=== PATIENT | female | born 1970 | race Caucasian/White ===

== ENCOUNTER 2019-02-02 18:56 | Emergency (ER) | payer SELFPAY ==
[~2019-02-02] VITALS: Ht 154.9 cm; Wt 61.2 kg
[2019-02-02 19:01] VITALS: BP 120/63
--- NOTE | 2019-02-02 19:05 | NUR ---
BIB DAUGHTER. AAO X4 C/O RIGHT FLANK STABBING PAIN RADIATING TO RIGHT SUPRAPUBIC YESTERDAY. ADMITS TO BURINING PAIN UPON VOIDING, HESITANCY. ABDOMEN TENDER TO TOUCH. PT IS CONSTANTLY BURPING. DENIES N/V/D. HOB UP. BED SIDE RAILS UP X1. ON LOW BED POSITION, LOCKED. ER MADE AWARE OF PT STATUS.
--- NOTE | 2019-02-02 19:05 | NUR ---
ASSUMED CARE OF PT FROM BETITO CASTILLO
--- NOTE | 2019-02-02 19:05 | NUR ---
URINE CUP HANDED TO PT FOR SAMPLE
[2019-02-02] MEDS ORDERED: NACL 0.9% 1,000 ML IV ONE (19:15)
[2019-02-02] MEDS ORDERED: MORPHINE SULFATE 4 MG/ML SYR IVP ONE (19:15)
[2019-02-02 19:32] LABS: BASOPHILS # (AUTO) 0.1 K/uL (0.00-0.22); BASOPHILS % (AUTO) 0.4 % (0.0-2.0); EOSINOPHILS # (AUTO) 0.2 K/uL (0-0.4); EOSINOPHILS % (AUTO) 1.2 % (0.0-4.0); HEMATOCRIT 39.3 % (36-48); HEMOGLOBIN 12.7 g/dL (12.0-16.0); LYMPHOCYTES # (AUTO) 4.3 K/uL (2.5-16.5); LYMPHOCYTES % (AUTO) 29.4 % (20.5-51.1); MEAN CORPUSCULAR HEMOGLOBIN 28 pg (27-31); MEAN CORPUSCULAR HGB CONC 32 g/dL (33-37); MEAN CORPUSCULAR VOLUME 86.7 fL (80-94); MONOCYTES # (AUTO) 1.1 K/uL (0.8-1.0); MONOCYTES % (AUTO) 7.2 % (1.7-9.3); NEUTROPHILS % (AUTO) 61.8 % (42.2-75.2); PLATELET COUNT (AUTO) 218 K/uL (140-450); RED BLOOD CELL COUNT(AUTO) 4.54 MIL/uL (4.20-5.40); RED CELL DISTRIBUTION WIDTH 12.5 % (11.6-13.7); WHITE BLOOD COUNT (AUTO) 14.6 K/uL (4.8-10.8)
--- NOTE | 2019-02-02 19:35 | NUR ---
US AT BEDSIDE.
[2019-02-02 19:40] LABS: ANION GAP 13.4 (8-16); CARBON DIOXIDE 25.8 mmol/L (21-32); CREATININE 0.8 mg/dL (0.6-1.3); POTASSIUM 3.2 mmol/L (3.5-5.1)
[2019-02-02 19:46] LABS: APPEARANCE,URINE HAZY (CLEAR); BILIRUBIN,URINE NEGATIVE (NEGATIVE); BLOOD, URINE 1+ (NEGATIVE); COLOR,URINE YELLOW (YELLOW); LEUKOCYTE ESTERASE ,URINE TRACE (NEGATIVE); NITRITE, URINE NEGATIVE (NEGATIVE); UGLUCOSE NEGATIVE (NEGATIVE)
[2019-02-02 19:47] LABS: ALBUMIN 3.7 g/dL (3.4-5.0); TOTAL BILIRUBIN 0.4 mg/dL (0.0-1.0)
[2019-02-02 19:56] LABS: WBC,URINE 16-25 (MOD) /HPF (0-5)
[2019-02-02] MEDS ORDERED: cefTRIAXone 1,000 MG VIAL ONE (20:16)
--- NOTE | 2019-02-02 20:18 | NUR ---
PT REPORTS RELIEF OF PAIN POST MORPHINE ADMIN. WILL CONTINUE TO MONITOR.
--- NOTE | 2019-02-02 20:44 | NUR ---
PT C/O PAIN, ER MD AWARE.
[2019-02-02] MEDS ORDERED: KETOROLAC 15 MG/ML VIAL IVP ONE (20:45)
--- NOTE | 2019-02-02 21:15 | NUR ---
PAIN RELEIVED POST MEDICATION ADMIN. WILL CONTINUE TO ASSESS.
--- NOTE | 2019-02-02 21:42 | NUR ---
IV removed, catheter intact and site benign. Applied folded 4x4 gauze and tape to stop bleeding.
--- NOTE | 2019-02-02 21:42 | NUR ---
Patient discharged with v/s stable. Written and verbal after care instructions given and explained. Patient alert, oriented and verbalized understanding of instructions. Ambulatory with steady gait. All questions addressed prior to discharge. ID band removed. Patient advised to follow up with PMD. Rx of FLOMAX, NORCO, TORADOL, CIPRO given. Patient educated on indication of medication including possible reaction and side effects. Opportunity to ask questions provided and answered.
[2019-02-02 21:44] VITALS: BP 117/75
== END 2019-02-02 21:44 | disposition home or self-care (01) ==
LOC: MED 18:56
DX: N20.0 Calculus of kidney (principal); N23 Unspecified renal colic
CPT/HCPCS: 36415; 74176; 76705; 80053; 81001; 81025; 83690; 85025; 87040; 87086; 87186; 96365; 96375; 99284; J0696; J1885; J2270; J7030; J7060; Q0092

== ENCOUNTER 2022-03-12 01:30 | Emergency (ER) | payer MEDICAID, OTHER ==
[~2022-03-12] VITALS: Ht 154.9 cm; Wt 65.8 kg
[2022-03-12 01:32] VITALS: BP 134/68
--- NOTE | 2022-03-12 01:40 | NUR ---
TO LOBBY FOLLOWING TRIAGE
[2022-03-12 02:10] LABS: BASOPHILS # (AUTO) 0.1 K/uL (0.00-0.22); BASOPHILS % (AUTO) 1.4 % (0.0-2.0); EOSINOPHILS % (AUTO) 0.3 % (0.0-4.0); HEMOGLOBIN 13.7 g/dL (12.0-16.0); LYMPHOCYTES # (AUTO) 1.5 K/uL (2.5-16.5); LYMPHOCYTES % (AUTO) 14.4 % (20.5-51.1); MEAN CORPUSCULAR HEMOGLOBIN 28 pg (27-31); MEAN CORPUSCULAR HGB CONC 33 g/dL (33-37); MONOCYTES # (AUTO) 0.4 K/uL (0.8-1.0); MONOCYTES % (AUTO) 3.6 % (1.7-9.3); NEUTROPHILS # (AUTO) 8.5 K/uL (1.8-7.7); NEUTROPHILS % (AUTO) 80.3 % (42.2-75.2); PLATELET COUNT (AUTO) 311 K/uL (140-450); RED BLOOD CELL COUNT(AUTO) 4.82 MIL/uL (4.20-5.40); RED CELL DISTRIBUTION WIDTH 12.6 % (11.6-13.7); WHITE BLOOD COUNT (AUTO) 10.6 K/uL (4.8-10.8)
--- NOTE | 2022-03-12 02:22 | NUR ---
PT AMBULATED TO BED#11
[2022-03-12 02:30] LABS: ALBUMIN 4.3 g/dL (3.4-5.0); ANION GAP 8.1 (8-16); CARBON DIOXIDE 29.5 mmol/L (21-32); CREATININE 0.6 mg/dL (0.6-1.3); POTASSIUM 3.6 mmol/L (3.5-5.1); TOTAL BILIRUBIN 0.6 mg/dL (0.0-1.0)
--- NOTE | 2022-03-12 02:35 | NUR ---
COVERING PRIMARY RN FOR LUNCH RELIEF. PT UNABLE TO PROVIDE URINE SPECIMEN AT THIS TIME.
--- NOTE | 2022-03-12 02:46 | NUR ---
DR. OCAMPO AT BEDSIDE FOR EVALUATION
[2022-03-12] MEDS ORDERED: KETOROLAC 30 MG/ML VIAL IM ONE ×2 (03:00)
--- NOTE | 2022-03-12 03:05 | NUR ---
URINE COLLECTED AND WALKED TO LAB
[2022-03-12 03:18] LABS: APPEARANCE,URINE CLEAR (CLEAR); BILIRUBIN,URINE NEGATIVE (NEGATIVE); BLOOD, URINE 1+ (NEGATIVE); COLOR,URINE YELLOW (YELLOW); LEUKOCYTE ESTERASE ,URINE 1+ (NEGATIVE); NITRITE, URINE NEGATIVE (NEGATIVE); PH,URINE 7.5 (5.0-9.0); UGLUCOSE NEGATIVE (NEGATIVE)
[2022-03-12 03:30] LABS: RBC,URINE 0-5 /HPF (0-5)
--- NOTE | 2022-03-12 03:30 | NUR ---
PT AMBULATED TO .
[2022-03-12] MEDS ORDERED: NITR100C7 PO (04:39)
[2022-03-12] MEDS ORDERED: ACET-10509 PO (04:39)
[2022-03-12 04:52] VITALS: BP 116/75
--- NOTE | 2022-03-12 04:52 | NUR ---
Patient discharged with v/s stable. Written and verbal after care instructions given and explained. Patient alert, oriented and verbalized understanding of instructions. Ambulatory with steady gait. All questions addressed prior to discharge. ID band removed. Patient advised to follow up with PMD. Rx of MACROBID, TYLENOL given. Patient educated on indication of medication including possible reaction and side effects. Opportunity to ask questions provided and answered.
[2022-03-13] MEDS ORDERED: CIPR500T4 PO (14:45)
[2022-03-13] MEDS ORDERED: ACET-10509 PO (14:45)
== END 2022-03-12 04:52 | disposition home or self-care (01) ==
LOC: MED 01:30
DX: N39.0 Urinary tract infection, site not specified (principal); Z98.890 Other specified postprocedural states; Z79.899 Other long term (current) drug therapy; Z79.2 Long term (current) use of antibiotics
CPT/HCPCS: 36415; 74176; 80053; 81001; 81025; 83690; 85025; 87086; 96372; 99284; J1885

== ENCOUNTER 2022-03-13 10:27 | Emergency (ER) | payer MEDICAID, OTHER ==
[~2022-03-13] VITALS: Ht 154.9 cm; Wt 60.5 kg
[~2022-03-13 10:27] MED LIST: ACET-10509 PO; NITR100C7 PO
[2022-03-13 10:35] VITALS: BP 137/74
[2022-03-13] MEDS ORDERED: FAMOTIDINE 20 MG/2 ML VIAL IVP ONE (10:40)
[2022-03-13] MEDS ORDERED: ONDANSETRON 4 MG/2 ML VIAL IVP ONE (10:40)
[2022-03-13] MEDS ORDERED: NACL 0.9% 1,000 ML IV ONE (10:40)
--- NOTE | 2022-03-13 10:41 | NUR ---
PT AMBULATED TO RESTROOM FOR URINE SAMPLE
--- NOTE | 2022-03-13 11:00 | NUR ---
51YO FEMALE PT C/O N/V/D AND INCONSISTENT BURNING LOWER ABDOMINAL PAIN X1 MONTH. PT HAS HEMATURIA ALONG WITH HESITANCY AND URGENCY. PT STATES 3/10 CHEST PALPITATIONS. STATES VOMITING ONCE TODAY, HAS MILD NAUSEA AT THIS TIME. PT CURRENTLY IN MENOPAUSE. [place]TS [place] 2 WEEKS AGO TO [facility] FOR 3 DAYS. PT AAOX4, GUARDING ABDOMEN. ABDOMEN NON TENDER , ACTIVE X4. PT ON MONITOR , BED AT LOWEST POSITION, BED RAILS UP X1. NKA NHX
[2022-03-13 11:15] LABS: BASOPHILS # (AUTO) 0.1 K/uL (0.00-0.22); BASOPHILS % (AUTO) 0.5 % (0.0-2.0); EOSINOPHILS # (AUTO) 0.2 K/uL (0-0.4); EOSINOPHILS % (AUTO) 1.1 % (0.0-4.0); HEMATOCRIT 44.7 % (36-48); LYMPHOCYTES # (AUTO) 3.2 K/uL (2.5-16.5); LYMPHOCYTES % (AUTO) 20.6 % (20.5-51.1); MEAN CORPUSCULAR HEMOGLOBIN 28 pg (27-31); MEAN CORPUSCULAR HGB CONC 32 g/dL (33-37); MEAN CORPUSCULAR VOLUME 86.2 fL (80-94); MONOCYTES # (AUTO) 0.9 K/uL (0.8-1.0); NEUTROPHILS # (AUTO) 11.2 K/uL (1.8-7.7); NEUTROPHILS % (AUTO) 71.8 % (42.2-75.2); PLATELET COUNT (AUTO) 326 K/uL (140-450); RED BLOOD CELL COUNT(AUTO) 5.18 MIL/uL (4.20-5.40); RED CELL DISTRIBUTION WIDTH 12.8 % (11.6-13.7); WHITE BLOOD COUNT (AUTO) 15.6 K/uL (4.8-10.8)
[2022-03-13 11:19] LABS: HEMOGLOBIN 14.4 g/dL (12.0-16.0)
[2022-03-13 11:26] LABS: ALBUMIN 4.2 g/dL (3.4-5.0); ANION GAP 16.1 (8-16); CARBON DIOXIDE 23.3 mmol/L (21-32); CREATININE 0.7 mg/dL (0.6-1.3); POTASSIUM 3.4 mmol/L (3.5-5.1); TOTAL BILIRUBIN 0.8 mg/dL (0.0-1.0)
[2022-03-13 11:30] LABS: APPEARANCE,URINE TURBID (CLEAR); BILIRUBIN,URINE 2+ (NEGATIVE); BLOOD, URINE 3+ (NEGATIVE); COLOR,URINE BROWN (YELLOW); LEUKOCYTE ESTERASE ,URINE 3+ (NEGATIVE); NITRITE, URINE POSITIVE (NEGATIVE); UGLUCOSE NEGATIVE (NEGATIVE)
[2022-03-13 12:06] LABS: CALCIUM OXALATE CRYSTALS,UR None Seen /HPF (None Seen); COARSE GRANULAR CASTS,URINE None Seen /LPF (None Seen); FINE GRANULAR CASTS,URINE None Seen /LPF (None Seen); HYALINE CASTS, URINE None Seen /LPF (None Seen); OTHER CRYSTALS,URINE None Seen /HPF (None Seen); RBC,URINE 11-20 (MOD) /HPF (0-5); TRICHOMONAS,URINE None Seen /HPF (None Seen); TRIPLE PHOSPHATE CRYSTAL,UR None Seen /HPF (None Seen); URIC ACID CRYSTALS,URINE None Seen /HPF (None Seen); URINE AMORPHOUS URATE None Seen /HPF (None Seen); WAXY CASTS,URINE None Seen /LPF (None Seen); WBC,URINE >25 (MANY) /HPF (0-5); YEAST,URINE None Seen /HPF (None Seen)
[2022-03-13 12:07] LABS: OTHER CASTS, URINE None Seen /LPF (None Seen); RED BLOOD CELL CASTS,URINE None Seen /LPF (None Seen)
[2022-03-13] MEDS ORDERED: cefTRIAXone 1,000 MG VIAL ONE (14:06)
[2022-03-13] MEDS ORDERED: ACET-10509 PO (14:45)
[2022-03-13] MEDS ORDERED: CIPR500T4 PO (14:45)
--- NOTE | 2022-03-13 15:13 | NUR ---
IV removed, catheter intact and site benign. Applied folded 4x4 gauze and tape to stop bleeding.
[2022-03-13 15:15] VITALS: BP 138/86
--- NOTE | 2022-03-13 15:15 | NUR ---
Patient discharged with v/s stable. Written and verbal after care instructions UTI AND FOOD POISONING given and explained. Patient alert, oriented and verbalized understanding of instructions. Ambulatory with steady gait. All questions addressed prior to discharge. ID band removed. Patient advised to follow up with PMD. Rx of TYLENOL EXTRA STRENGTH TAB given. Opportunity to ask questions provided and answered.
--- NOTE | 2022-03-13 15:16 | NUR ---
The patient's care was reviewed and supervised by Paz Connor RN.
--- NOTE | 2022-03-16 19:04 | NUR ---
Note undone in EDM - 03/16/22 at 1905 by [email or web address] LATE ENTRY. POSITIVE URINE CULTURE RESULT. FORM SIGNED BY DR FARLEY. PT REPORTS ABDOMINAL PAIN. DR FARLEY PRESCRIBING BACTRIM DS. PT ADVISED TO TAKE FULL RX AND IF S/S CONTINUE, TO RETURN. FORM PLACED IN BINDER
--- NOTE | 2022-03-16 19:05 | NUR ---
LATE ENTRY. RECEIVED POSITIVE URINE CULTURE. TREATMENT APPROPRIATE PER DR FARLEY. FORM SIGNED AND PLACED IN BINDER
== END 2022-03-13 15:15 | disposition home or self-care (01) ==
LOC: MED 10:27
DX: K52.9 Noninfective gastroenteritis and colitis, unspecified (principal); N39.0 Urinary tract infection, site not specified; Z79.899 Other long term (current) drug therapy; Z79.2 Long term (current) use of antibiotics
CPT/HCPCS: 36415; 80053; 81001; 83690; 84702; 85025; 87040; 87086; 96361; 96365; 96375; 99284; J0696; J2405; J3490; J7030